=== PATIENT | female | born 1955 | race African-American/Black ===

== ENCOUNTER 2017-06-23 10:52 | Emergency (ER) | payer OTHER, SELFPAY ==
[2017-06-23] MEDS ORDERED: Amlodipine 5 MG TAB ONE (11:33)
[2017-06-23] MEDS ORDERED: hydrALAZINE 20 MG/ML VIAL ONE (11:42)
== END 2017-06-23 12:15 | disposition home or self-care (01) ==
LOC: NAV ERS 10:52
DX: J06.9 Acute upper respiratory infection, unspecified (principal); I16.0 Hypertensive urgency; Z87.891 Personal history of nicotine dependence
CPT/HCPCS: 96372; J0360

== ENCOUNTER 2017-08-10 16:50 | Emergency (ER) | payer SELFPAY | END 2017-08-10 17:07 | disposition home or self-care (01) | LOC: NAV ERS 16:50 | DX: K02.9 Dental caries, unspecified (principal); H92.02 Otalgia, left ear; I10 Essential (primary) hypertension; Z87.891 Personal history of nicotine dependence; Z79.899 Other long term (current) drug therapy | CPT/HCPCS: 99282 ==

== ENCOUNTER 2018-11-25 09:07 | Emergency (ER) | payer SELFPAY ==
[2018-11-25] MEDS ORDERED: Amlodipine 5 MG TAB ONE (10:02)
== END 2018-11-25 10:06 | disposition home or self-care (01) ==
LOC: NAV ERS 09:07
DX: I10 Essential (primary) hypertension (principal); Z87.891 Personal history of nicotine dependence
CPT/HCPCS: 99283